=== PATIENT | female | born 1955 | race Caucasian/White ===

== ENCOUNTER 2018-06-01 14:56 | Outpatient (CLI) | payer OTHER ==
--- NOTE | 2018-06-01 17:36 | RAD ---
CHEST TWO VIEWS: 06/01/18 No prior films were available for comparison. The heart is mildly enlarged, but the vessels are not really congested at the moment. I cannot diagno se CHF at this time. No lobar infiltrate or effusion was seen. The mediastinum shows no widening or s hift. IMPRESSION: Mild cardiac enlargement. POS: [facility]
[2018-06-01 22:08] LABS: ALT (SGPT) 22 U/L (8-55); AST (SGOT) 23 U/L (5-34); Alkaline Phosphatase 114 U/L (40-150); Anion Gap 17 mmol/L (10-20); BUN (Urea Nitrogen) 10 mg/dL (9.8-20.1); Bilirubin, Total 0.4 mg/dL (0.2-1.2); Calc. Creatinine Clearance 0 mL/min (70-130); Calcium 9.5 mg/dL (7.8-10.44); Carbon Dioxide 24 mmol/L (22-29); Chloride 103 mmol/L (98-107); Estimated GFR-MDRD 76; Globulin 2.5 g/dL (2.4-3.5); Glucose 160 mg/dL (70-105); Potassium 3.9 mmol/L (3.5-5.1); Protein, Total 6.5 g/dL (6.0-8.3); Sodium 140 mmol/L (136-145)
[2018-06-01 22:20] LABS: Hemoglobin 16.3 g/dL (12.0-16.0); Lymphocytes 28 % (21-51); MDiff Complete? YES; Mean Corpuscular HGB CONC 32.5 g/dL (32.0-36.0); Mean Corpuscular Hemoglobin 29.1 pg (27.0-31.0); Mean Corpuscular Volume 89.4 fL (78.0-98.0); Mean Platelet Volume 9.1 fL (7.4-10.4); Monocytes 6 % (0-10); Neutrophil 66 % (42-75); Platelet Count 266 thou/uL (130-400); Platelet Morphology Comment Appears Adequate; RBC Distribution Width 13.6 % (11.5-14.5); RBC Morphology Normal; Red Blood Cell (RBC) Count 5.62 mill/uL (4.20-5.40); White Blood Cell (WBC) Count 9.5 thou/uL (4.8-10.8)
== END 2018-06-01 14:57 | disposition home or self-care (01) ==
LOC: BURRAD 14:56
PROVIDERS: ATTEND Internal Medicine Cardiovascular Disease
DX: I50.22 Chronic systolic (congestive) heart failure (principal); I51.7 Cardiomegaly
CPT/HCPCS: 36415; 71046; 80053; 83880; 85025

== ENCOUNTER 2018-06-03 22:09 | Emergency (ER) | payer OTHER, SELFPAY ==
[~2018-06-03 22:09] MED LIST: Iopamidol 370 76% 100 ML VIAL ONE
[2018-06-03 22:39] LABS: #Basophils 0.2 thou/uL (0.0-0.2); #Eosinphils 0.2 thou/uL (0.0-0.7); #Lymphocytes 3.3 thou/uL (1.20-3.40); #Monocytes 0.7 thou/uL (0.11-0.59); #Neutrophils 8.6 thou/uL (1.40-6.50); %Basophils 1.4 % (0.0-1.0); %Eosinophils 1.4 % (0.0-10.0); %Lymphocytes 25.4 % (21.0-51.0); %Monocytes 5.7 % (0.0-10.0); %Neutrophils 66.1 % (42.0-75.0); Hemoglobin 16.8 g/dL (12.0-16.0); Mean Corpuscular HGB CONC 31.8 g/dL (32.0-36.0); Mean Corpuscular Hemoglobin 28.1 pg (27.0-31.0); Mean Corpuscular Volume 88.5 fL (78.0-98.0); Mean Platelet Volume 8.3 fL (7.4-10.4); Platelet Count 305 thou/uL (130-400); RBC Distribution Width 14.7 % (11.5-14.5); Red Blood Cell (RBC) Count 5.96 mill/uL (4.20-5.40)
[2018-06-03 22:55] LABS: ALT (SGPT) 182 U/L (8-55); AST (SGOT) 183 U/L (5-34); Albumin 4.3 g/dL (3.5-5.0); Alkaline Phosphatase 152 U/L (40-150); Anion Gap 16 mmol/L (10-20); BUN (Urea Nitrogen) 14 mg/dL (9.8-20.1); Bilirubin, Total 0.6 mg/dL (0.2-1.2); Calc. Creatinine Clearance 0 mL/min (70-130); Calcium 10.1 mg/dL (7.8-10.44); Carbon Dioxide 27 mmol/L (22-29); Chloride 101 mmol/L (98-107); Estimated GFR-MDRD 61; Globulin 3.2 g/dL (2.4-3.5); Glucose 203 mg/dL (70-105); Potassium 3.9 mmol/L (3.5-5.1); Protein, Total 7.5 g/dL (6.0-8.3); Sodium 140 mmol/L (136-145)
[2018-06-03] MEDS ORDERED: Furosemide 100 MG/10 ML VIAL ONE (23:03)
[2018-06-03] MEDS ORDERED: Aspirin Chewable 81 MG TAB ONE (23:25)
--- NOTE | 2018-06-03 23:25 | RAD ---
CHEST ONE VIEW: History: Dyspnea. Comparison: 06-01-18 FINDINGS: Since the comparison examination there is worsening pulmonary vascular congestion and bilateral perih ilar edema. The cardiac silhouette remains enlarged. There are suspected tiny bilateral pleural effus ions. IMPRESSION: Worsening CHF. POS: [facility]
[2018-06-04] MEDS ORDERED: Enoxaparin Sodium 100 MG/ML SYRINGE ONE (00:05)
--- NOTE | 2018-06-04 07:50 | CT ---
CTA OF THE THORAX UTILIZING IV CONTRAST AND A PE PROTOCOL WITH 3D REFORMATTED IMAGING: COMPARISON: None. FINDINGS: There is partially occlusive thread-like thrombus seen within the left lower pulmonary lobar artery e xtending into segmental branches of the posterior medial left lower lobe. There is mild cardiomegaly with pulmonary interstitial prominence and small bilateral pleural effusions which may reflect a com ponent of CHF. There are no overt changes of right heart dysfunction. There are nonspecific enlarged lymph nodes within the hilar regions as well as the mediastinum with t he largest lymph node seen within the pretracheal region upon image 38 series 2 measuring 1.7 cm. No axillary lymphadenopathy is grossly evident. No upper abdominal lymphadenopathy is seen. There is a 1.7 cm left adrenal adenoma. There is prominent fatty infiltration of the liver. There is scatter ed degenerative change. IMPRESSION: 1. Positive PE study as above. 2. Findings suggesting mild congestive heart failure. 3. Nonspecific mediastinal hilar lymphadenopathy. This may be reactive in nature; however, other et iologies such as granulomatous disease, fungal or TB infection cannot be entirely excluded. Lymphoma is also a consideration. CT followup in 6-8 weeks to document stability or resolution is recommende d. 4. Fatty liver. 5. Left adrenal adenoma. 6. Findings were called to Dr. Guerrero at 11:57 p.m. on 06/03/2018. CODE CR POS: [facility]
== END 2018-06-04 00:25 | disposition short-term general hospital (02) ==
LOC: BURERS 22:09
DX: I26.99 Other pulmonary embolism without acute cor pulmonale (principal); I50.9 Heart failure, unspecified; R79.89 Other specified abnormal findings of blood chemistry; K76.0 Fatty (change of) liver, not elsewhere classified; R09.02 Hypoxemia; F17.210 Nicotine dependence, cigarettes, uncomplicated; Z79.899 Other long term (current) drug therapy; Z79.82 Long term (current) use of aspirin
CPT/HCPCS: 71045; 71275; 80053; 83880; 84484; 85025; 85379; 93005; 94640; 94760; 96372; 96374; J1650; J1940; J7620; Q9967

== ENCOUNTER 2022-12-26 20:46 | Emergency (ER) | payer OTHER ==
[2022-12-26] MEDS ORDERED: Ipratropium/Albuterol 3 ML NEB ONE ×2 (21:04→21:13)
[2022-12-26] MEDS ORDERED: Heparin 25,000 units/D5W 0 ML ONE (21:16)
[2022-12-26] MEDS ORDERED: Furosemide 40 MG/4 ML VIAL ONE (21:28)
[2022-12-26 21:34] LABS: Prothrombin Time 13.7 sec (12.0-14.7)
[2022-12-26 21:54] LABS: ALT (SGPT) 65 U/L (8-55); AST (SGOT) 75 U/L (5-34); Albumin 4.2 g/dL (3.4-4.8); Alkaline Phosphatase 138 U/L (40-110); Anion Gap 22 mmol/L (10-20); BUN (Urea Nitrogen) 12 mg/dL (9.8-20.1); Bilirubin, Total 0.6 mg/dL (0.2-1.2); Calc. Creatinine Clearance 0 mL/min (70-130); Calcium 9.2 mg/dL (7.8-10.44); Carbon Dioxide 27 mmol/L (23-31); Chloride 99 mmol/L (98-107); Estimated GFR 66; Globulin 3.9 g/dL (2.4-3.5); Glucose 235 mg/dL (80-115); Hematocrit 57.9 % (36.0-47.0); Hemoglobin 17.1 g/dL (12.0-16.0); Mean Corpuscular HGB CONC 29.6 g/dL (32.0-36.0); Mean Corpuscular Volume 91.1 fl (78.0-98.0); Mean Platelet Volume 7.7 fL (7.4-10.4); Platelet Count 376 10x3/uL (130-400); Potassium 3.5 mmol/L (3.5-5.1); Protein, Total 8.1 g/dL (5.8-8.1); RBC Distribution Width 13.9 % (11.5-14.5); Red Blood Cell (RBC) Count 6.36 mill/uL (4.20-5.40); Sodium 144 mmol/L (136-145); Troponin I 0.033 ng/mL (< 0.028); White Blood Cell (WBC) Count 15.6 10x3/uL (4.8-10.8)
[2022-12-26 22:08] LABS: SARS-CoV-2 NAA Rapid Test Not Detected (NotDetected)
== END 2022-12-26 22:18 | disposition short-term general hospital (02) ==
LOC: BURERS 20:46
DX: R06.03 Acute respiratory distress (principal); R09.02 Hypoxemia; I10 Essential (primary) hypertension; E11.9 Type 2 diabetes mellitus without complications; F17.210 Nicotine dependence, cigarettes, uncomplicated; E78.00 Pure hypercholesterolemia, unspecified; Z20.822 Contact with and (suspected) exposure to COVID-19; Z79.82 Long term (current) use of aspirin; Z79.4 Long term (current) use of insulin; Z79.84 Long term (current) use of oral hypoglycemic drugs; Z79.899 Other long term (current) drug therapy; Z86.711 Personal history of pulmonary embolism
CPT/HCPCS: 71045; 80053; 83605; 83880; 84484; 85025; 85610; 85730; 87040; 94760; 96361; 96374; 36415-59; J1644; J1940; J7611; J7620